=== PATIENT | male | born 1975 | race Caucasian/White ===

== ENCOUNTER 2019-04-09 00:04 | Emergency (ER) | payer SELFPAY ==
[2019-04-09] MEDS ORDERED: OXYCODONE-ACETAMINOPHEN 5-325 MG TABLET PO ONE (02:45)
[2019-04-09] MEDS ORDERED: CIPROFLOXACIN HCL/DEXAMETH OTIC DROP 7.5 ML AD ONE (02:45)
[2019-04-09] MEDS ORDERED: PROMETHAZINE HCL 25 MG TABLET PO ONE (02:45)
[2019-04-09] MEDS ORDERED: HYDROCODONE/ACETAMINOPHEN 5-325 MG (6 TAB/ER DISP) PO PRN (02:45)
--- NOTE | 2019-04-09 02:49 | ER Document Report ---
HPI - HPI Time Seen by Provider: 04/09/19 02:45 Pain Level: 5 Context: Patient is a 43-year-old male that comes emergency department for chief complaint of progressively worsening right ear pain over the past 2 days. Pain became very severe tonight. No drainage from the ear, vomiting, fever, sore throat, ankle pain, jaw pain, or other symptoms reported. Denies headache. Past Medical History - General Information source: Patient - Social History Smoking Status: Unknown if Ever Smoked Drug Abuse: None Lives with: Family Family History: Reviewed & Not Pertinent - Immunizations Immunizations up to date: Yes Hx Diphtheria, Pertussis, Tetanus Vaccination: Yes Vertical Provider Document - CONSTITUTIONAL General Appearance: WD/WN, Mild Distress - INFECTION CONTROL TRAVEL OUTSIDE OF THE [place] IN LAST 30 DAYS: No - HEENT HEENT: Atraumatic, Normocephalic. negative: Normal ENT Exam - Oral pharyngeal exam is normal, nasal exam is normal, left ear is normal. Right ear with tenderness over the tragus, swelling and erythema of the right ear canal, tympanic membrane appears normal. No mastoid tenderness. Otherwise unremarkable. - NECK Neck: Normal Inspection. negative: Lymphadenopathy-Left, Lymphadenopathy-Right - RESPIRATORY Respiratory: Breath Sounds Normal, No Respiratory Distress - CARDIOVASCULAR Cardiovascular: Regular Rate, Regular Rhythm - GI/ABDOMEN Gastrointestinal: Abdomen Soft, Abdomen Non-Tender - BACK Back: Normal Inspection - MUSCULOSKELETAL/EXTREMETIES Musculoskeletal/Extremeties: MAEW, FROM, Non-Tender - NEURO Level of Consciousness: Awake, Alert, Appropriate Motor/Sensory: No Motor Deficit, No Sensory Deficit - DERM Integumentary: Warm, Dry, No Rash Course - Re-evaluation Re-evalutation: Patient given Ciprodex and a wick as dispense, wick was placed using the Ciprodex - Vital Signs Vital signs: Temp Pulse Resp BP Pulse Ox 98.0 F 61 18 128/74 H 96 04/09/19 01:09 04/09/19 01:09 04/09/19 01:09 04/09/19 01:09 04/09/19 01:09 Discharge - Discharge Clinical Impression: Otitis externa Qualifiers: Otitis externa type: unspecified type Chronicity: acute Laterality: right Qualified Code(s): H60.501 - Unspecified acute noninfective otitis externa, right ear Condition: Stable Disposition: HOME, SELF-CARE Additional Instructions: Your evaluation is consistent with an ear infection of the ear canal on the right side. Take Ciprodex drops as prescribed, 4 drops twice a day for 7 days. The wick placed should follow out on its own as the swelling of the ear goes down. Take the medication for pain if needed, you can take ibuprofen along with this as well. Come back if you are worse including swelling of the ear, vomiting, fever, or something is not right. Forms: Return to Work
[2019-04-09 03:00] VITALS: BP 128/80
== END 2019-04-09 03:23 | disposition home or self-care (01) ==
LOC: ER 00:04
DX: H60.501 Unspecified acute noninfective otitis externa, right ear (principal); H92.01 Otalgia, right ear
CPT/HCPCS: 99282; J3490